=== PATIENT | male | born 1970 | race Caucasian/White ===

== ENCOUNTER 2017-11-27 21:51 | Emergency (ER) | payer SELFPAY ==
[~2017-11-27] VITALS: Ht 188 cm; Wt 83.9 kg
== END 2017-11-27 23:40 | disposition home or self-care (01) ==
LOC: ER 21:51
DX: S01.81XA Laceration without foreign body of other part of head, initial encounter (principal); Z23 Encounter for immunization; Z87.891 Personal history of nicotine dependence; W01.0XXA Fall on same level from slipping, tripping and stumbling without subsequent striking against object, initial encounter
CPT/HCPCS: 12013; 90471; 90714; 99282